=== PATIENT | male | born 1985 | race Hispanic/Latino ===

== ENCOUNTER 2019-07-27 13:35 | Observation (INO) | payer OTHER, SELFPAY ==
[2019-07-24 10:44] VITALS: BMI 38.3
[2019-07-27] VITALS (20 sets, daily range): BP systolic 81–157; BP diastolic 29–96; PULSE 51–100; RESP 8–19; TEMP 36.1–36.6; O2SAT 92–100; BMI 37.3
--- NOTE | 2019-07-27 | DI.RAD.S_ITS ---
PROCEDURE: XR LUMBAR SPINE 2-3V INDICATIONS: L5 S1 MICRODISECTOMY TECHNIQUE: 2 views of the lumbar spine were acquired. COMPARISON: None. FINDINGS: Bones: Right-sided L5-S1 portable localization for anticipated microdiscectomy. Soft tissues: Overlying bowel gas pattern is normal. No suspicious soft tissue calcifications. IMPRESSION: Expected positioning of right posterolateral access port for L5-S1 microdiscectomy. Dictated by: Danny Roberts M.D. on 07/27/2019 at 17:04 Approved by: Danny Roberts M.D. on 07/27/2019 at 17:04
[2019-07-27] MEDS: LACTATED RINGERS 1,000 ML 42 ML IV ×2 (14:21→18:37)
--- NOTE | 2019-07-27 15:43 | PM.PREOP ---
Pre-operative Note Interval Note History & Physical reviewed/Exam performed by Physician: Yes Changes to H&P: No
[2019-07-27] MEDS: CEFAZOLIN 2 GM/100 ML FROZ.PIGGY IV (16:05)
--- NOTE | 2019-07-27 16:32 | SUR.OPER ---
Prone on spine table, head in foam head support, padded chest and pelvic supports, gel pad at knees, lower legs supported by pillows; nipples, genitalia and toes free of pressure, arms secured on foam padded arm boards at <90 degrees abduction. Tape over blanket at thigh secured to table.
[2019-07-27] MEDS: methylPREDNISolone acet DEPO 40 MG/ML VIAL INJ (16:40)
[2019-07-27] MEDS: BUPIVACAINE 0.25% W/ EPI 30 ML VIAL INJ (16:41)
--- NOTE | 2019-07-27 17:15 | P.OP_ITS ---
Operative Date/Time/Diagnoses Date of procedure: 07/27/19 Time of procedure: 15:15 Pre-op diagnosis: 1. L5-S1 disc herniation 2. Lumbar radiculopathy Post-op diagnosis: same Procedure & Clinicians Procedure: 1. L5-S1 right microdiscectomy 2. Utilization of microsurgical technique and operating microscope Same procedure as scheduled: Yes Indications: Patient has been having chronic back pain and worsening lumbar radiculopathy. Patient failed multiple conservative management with worsening pain weakness and numbness in her lower extremity. Patient has been having difficulty performing activity of daily living. After discussing risks benefits of treatment options, patient elected proceed with surgery. Surgeon: Pushpa Pollard Gas Meter Repair Supervisor: Juani Zuniga Click Yes if Unassisted: No Anesthesia Type: General Operative Notes Closure Type: primary Specimen(s): none sent Estimated Blood Loss (mL): 10 Blood products transfused: none Procedure in detail: Patient was seen in the preoperative area. Risks and benefits of the surgery was discussed with the patient. Informed consent was obtained from the patient and placed in the chart. Surgical site was marked. Patient was taken to the operative room. General anesthesia was administered. Prophylactic antibiotic was given to the patient less than 30 min before the incision was made. Patient was placed into a prone position on the Paul table. Patient's back was then prepped and draped in the sterile fashion. Time- out was performed at this time. Using AP and lateral C-arm imaging the interval between L5-S1 was identified and marked on patient's back. A 1 inch incision 1 in from midline was made on the right side. The fascia was incised in line with skin incision. Globus MARS retractors was placed inside the incision and docked onto the L5 lamina. Using microsurgical technique and operating microscope, a L5-S1 laminotomy was performed using a Kerrison rongeur. Liagamentum flavum was resected at the site of the laminotomy. The disc space at L5-S1 was identified. Microdiscectomy was performed by incising the annulus with #11 blade. Microcurettes and pituitary was used to removed herniated disc fragments of disc from the epidural space. Patient was a also found to have significant amount of epidural lipomatosis which was carefully resected during the process of decompression. After the microdiskectomy was completed, the area medial lateral superior and inferior to the area of the microdiskectomy was inspected and explored using a micro curette. No other impinging structure was identified. The wound was then irrigated with sterile normal saline. 40 mg Depo-Medrol was placed into the epidural space. The deep fascia was closed with 1-0 Vicryl. The subcutaneous tissue was closed with 2-0 Vicryl. The skin was closed with skin michaelle. Patient tolerated the procedure well. There were no complications. Patient was transferred recovery room in stable condition. Complications: none Post-operative Condition: stable Disposition: PACU Plan for aftercare: Discharge to home
[2019-07-27] MEDS: HYDROMORPHONE 2 MG INJ 0.5 MG IV ×8 (17:35→18:20)
[2019-07-27] MEDS: fentaNYL 100 MCG/2 ML INJ 50 MCG IV ×4 (17:55→18:30)
[2019-07-27] MEDS: OXYCODONE/ACETAMINOPHEN 5/325 TABLET 1 TAB PO ×2 (18:15→18:42)
[2019-07-27] MEDS: hydrOXYzine 50 MG/ML INJ 25 MG IM (20:05)
--- NOTE | 2019-07-27 21:10 | PC.NURSE ---
Patients respirations are irregular with periods of 3-5 seconds of apnea.
--- NOTE | 2019-07-27 22:57 | PC.NURSE ---
2029-Patient arrives via stretcher; opens eyes spontaneously, patient DALI, reports numbness to R toes. 2299-patient remains on 2 L NC spo2-94%, lethargic-opens eyes to voice, HR in the 60s-70s, RR 10-12; shallow breathing noted, soft BP in the 90s w/MAP in the 70s. reports pain 5/10 and tolerable. denies nausea. CMS intact and now reports tingling to R toes. report to noc RN.
[2019-07-28 00:13] VITALS: BP 124/59; PULSE 105; RESP 12; TEMP 36.3; O2SAT 95
[2019-07-28] MEDS: HYDROMORPHONE 0.5 MG INJ IV (00:35)
[2019-07-28] MEDS: SODIUM CHLORIDE 0.9% FLUSH 10 ML IV (00:40)
[2019-07-28 04:27] VITALS: BP 132/65; PULSE 96; RESP 13; TEMP 36.4; O2SAT 95
[2019-07-28] MEDS: OXYCODONE/ACETAMINOPHEN 5/325 TABLET 1 TAB PO (04:27)
[2019-07-28 07:41] VITALS: BP 121/58; PULSE 87; RESP 15; O2SAT 95
[2019-07-28] MEDS: OXYCODONE/ACETAMINOPHEN 7.5/325 TABLET 1 TAB PO ×3 (08:41→15:31)
--- NOTE | 2019-07-28 09:10 | PM.PN.1 ---
Subjective Subjective Date Patient Seen: 07/28/19 Time Patient Seen: 09:10 Interval history: Patient is post op day 1 s/p L5-S1 microdisectomy with Dr. Pollard. Pain well controlled with percocet and dilaudid. Yesterday evening, patient was transferred to the ICU because of hypotension, shallow breathing, and lethargy. Patient improved overnight with 2 L NC spo2-94% and was transitioned to room air in the AM. Patient states that at home he snores, takes shallow breaths and gasps for air (observed by ). Patient complains of numbness to right lower extremity, which he had pre-op. Patient also complains of nausea and dizziness when standing up. Patient denies any fever, chills, vomiting, calf pain, chest pain, shortness of breath. Patient has support at home from his , Ara Morton. Exam Vital Signs (past 8 hours): - 07/28/19 04:27 07/28/19 07:41 Temperature 97.5 F L Pulse Rate 96 H 87 Respiratory Rate 13 15 Blood Pressure 132/65 121/58 L Pulse Oximetry 95 95 Oxygen Delivery Method Nasal Cannula Oxygen Flow Rate 0.5 Narrative Exam Narrative: 34 y/o M is sitting comfortably in a chair, in no apparent distress. A&Ox3. Sensation to light touch reduced on lateral, posterior right calf. Pulses 2+ bilaterally lower extremities. Patient able to actively plantar flex/dorsiflex bilaterally. Objective Labs Result Diagrams: 07/28/19 09:48 Assessment & Plan Assessment & Plan narrative: Post op day 1 Hypotension: EKG/Telemetry shows normal sinus rythym and patient has stabilized Patient told to follow up with PCP Patient will mobilize with physical therapy. Pain well controlled with dilaudid and percocet. Patient will likely be discharged home today if medically stable Quality VTE Deep Vein Thrombosis/Pulmonary Embolism Present on Admission: No
--- NOTE | 2019-07-28 09:15 | PT.IIE ---
Current Diagnoses Intervertebral disc disorders with radiculopathy, lumbar region (07/27/19) Dorsalgia, unspecified (07/27/19) Surgery Performed Operation Date: 07/27/19 15:15 Actual Procedures p L5-S1 microdiscectomy(Right) - Pushpa Pollard MD Surgical History (Last Updated 07/24/19 @ 11:02 by Martina Vasquez, RN) No history of previous surgery (Acute) Medical History (Last Updated 07/24/19 @ 11:02 by Martina Vasquez RN) Back pain (Acute) Physical Therapy Inpatient Evaluation/Re-Eval M1 PT/OT-IP Prior Functional Status Start: 07/28/19 12:17 Freq: NEEDED Status: Active Protocol: Document 07/28/19 09:15 AB (Rec: 07/28/19 12:27 [id number]) Medical Review Prior Functional Status Medical History Reviewed Yes Communication able to make needs known Mobility and Gait pt stated that he is independent with all mobilities and ambulation without AD Social History Household Members spouse,children Living Arrangements House Number of Floors (Floors) Two Floors Number of Stairs To Enter/Railing? 2 steps to enter R rail + 1 step threshold to enter the house bedroom level: 15 steps with L rail ascending Home Environment Standard Height Toilet,Walk in Shower Employment Status Active Duty Additional Social History Comment pt works in the [employer] M2 PT-IP Current Condition Start: 07/28/19 12:17 Freq: NEEDED Status: Active Protocol: Document 07/28/19 09:15 AB (Rec: 07/28/19 12:27 [id number]) Physical Therapy Current Condition Current Condition Evaluation Date 07/28/19 Treatment Diagnosis L5S1 R mircordiscectomy; difficulty in walking Onset Date 07/27/19 Precautions Lumbar Precautions Log Roll,No Twisting,Limit Bending,Lifting Restriction of 10 lbs,Gait Belt above Incisional Area M3 PT-IP Subjective Start: 07/28/19 12:17 Freq: NEEDED Status: Active Protocol: Document 07/28/19 09:15 AB (Rec: 07/28/19 12:27 [id number]) Subjective Physical Therapy Visit Type Type Initial Evaluation Visit Start Time 09:15 Visit Stop Time 10:10 Total Visit Minutes 55 Number of BUNG DRIVER Visits 0 Physical Therapy Visit Comments Patient Comments pt agreeable to do PT Therapy Pain Assessment Pain When Pain Assessed At Rest Pain Present Pain Present Pain Reported Location lower back/right thigh Intensity 3 Scale Used increases to 4-5 with movement Pain Behaviors Guarding Pain Management Techniques Re-positioning,Timing of Activity with Medications M4 PT-IP Mobility and Gait Start: 07/28/19 12:17 Freq: NEEDED Status: Active Protocol: Document 07/28/19 09:15 AB (Rec: 07/28/19 12:27 [id number]) PT-Bed Mobility Assessment Rolling Type of Rolling Log Rolling Level of Assist Standby Assistance Supine to Sit Supine to Sit Standby Assistance Sit to Supine Sit to Supine Standby Assistance Scooting Scooting to Edge of Bed Standby Assistance PT-Transfer Assessment Sit to and From Stand Sit to and from Stand Contact Guard Assistance,1 Person Assistance,Use of Upper Extremities Equipment Transfer Assistive Device Gait Belt,Front Wheeled Walker Orthotic/Prosthetic Devices or Brace: No Comments Mobility Comments completed sit <>stand x 5 reps requiring initial min A. educated on techniques and was able to complete with just CGA Gait Assessment Gait Gait Assistance Required: Contact Guard Assist Distance (Feet) 50 Able to Maintain Weight Bearing Status Yes During Gait Assistive Devices Assistive Device Gait Belt,Front Wheeled Walker Orthotic/Prosthetic Devices or Brace: No Gait Deviations General Gait Pattern Antalgic,Decreased Stride Length,Decreased Feet Clearance,Step-to Gait Factors Limiting Gait Function Factors Limiting Gait Function Decreased Activity Tolerance, Decreased Sensation,Decreased Strength,Limited Range of Motion,Pain,Poor Balance,Poor Safety Awareness Comments Gait Comments pt presents with unsteady gait and very guarded, requiring increase time to complete tasks. PT-Balance Assessment Sitting Balance and Reactions Static Sitting Balance Ability Good Dynamic Sitting Balance Ability Good Standing Balance and Reactions Static Standing Balance Ability Fair Dynamic Standing Balance Ability Fair Device Used FWW M5 PT-IP Objective Assessments Start: 07/28/19 12:17 Freq: NEEDED Status: Active Protocol: Document 07/28/19 09:15 AB (Rec: 07/28/19 12:27 [id number]) Orientation Orientation/Cognition Level of Alertness Alert Orientation Name,Age,Birthday,Month,Date, Year,Day of Week,Place, Situation Language Function Ability No Deficits Noted Safety Awareness Understands Safety Issues Memory Description No Deficits Noted Gross Range of Motion Lower Extremity ROM Assessment Within Functional Limits Strength Lower Extremity Strength Assessment Bilaterally Impaired Hip 4-/5 Knee 4-/5 Coordination Assessment Gross Coordination Gross Coordination WNL Sensation Assessment Sensation Gross Sensation Right LE Impaired Light Touch Impaired Proprioception (Position) Impaired Sensation Description Numbness,Tingling Comments Sensation Comments able to determine light touch location but c/o numbness/ tingling more on lateral R lower leg and R foot. Muscle Tone Muscle Tone WNL Yes M6 PT-IP Treatment Start: 07/28/19 12:17 Freq: NEEDED Status: Active Protocol: Document 07/28/19 09:15 AB (Rec: 07/28/19 12:27 [id number]) Physical Therapy Treatment Education Education Provided Precautions,Weight Bearing Status,Post-Op Packet,Safety M7 PT-IP Assessment and Plan Start: 07/28/19 12:17 Freq: NEEDED Status: Active Protocol: Document 07/28/19 09:15 AB (Rec: 07/28/19 12:27 [id number]) PT Summary Assessment and Plan Potential Rehabilitation Potential Good Status of Condition at Evaluation Evolving Summary Impairments Pain,ROM,Strength,Balance, Coordination,Sensation,Tone, Cognition,Bed Mobility, Transfers,Gait,Activity Tolerance Assessment Summary pt requiring CGA with mobility and requiring increase time to complete tasks. set up caregiver training later today ~1pm with spouse. will also conduct stair climbing training. d/c plan depending if spouse will be able to assist pt safely. will continue to assess. also informed pt regarding equipement needs: FWW, shower chair and RTS with handles. Goals Bed Mobility Goal Independent Transfer Goal Independent,Front Wheeled Walker Gait Goal Independent,Front Wheel Walker Gait Distance 200 Other Goals up/down 2 steps R rail SBA up/down 1 step using FWW SBA up/down 15 steps L rail SBA Frequency of Treatment Frequency Of Treatment Twice a Day Treatment Plan Physical Therapy Treatment Plan Bed Mobility Training,Transfer Training,Gait Training, Therapeutic Exercise,Balance Retraining,Post Op Education, Discharge Planning,Hot or Cold Pack,Neuromuscular Re-ed, Coordination Retraining,Manual Therapy Other Recommendations and Next Treatment caregiver training 07/28/19@ 1 Focus pm Recommendations To Nursing Amount of Assist Needed 1 Person Assist Discharge Recommendations PT Discharge Recommendations Home with Assistance Equipment Needed for Home Before FWW, RTS with handles, shower Discharge chair
[2019-07-28 09:54] LABS: Hematocrit 42.3 % (41-53); Hemoglobin 14.6 g/dL (13.5-17.5)
--- NOTE | 2019-07-28 11:46 | CM.DANOTE ---
Addendum entered by Darlene Melendrez 07/28/19 17:20: Faxed initial clinicals to [facility] per protocol. Addendum entered by Darlene Melendrez 07/28/19 13:27: Spoke with Luzma from PT, she reports that spouse will need some caregiver training prior to d/c. Spouse expected to meet therapy this afternoon for training. D/C either today or in AM. KJS Original Note: DCP/Assessment: Reviewed chart. benjamin is a 34yr old male admitted to [facility] for elective L5-S1 microdisectomy with Dr. Pollard. PCP is at [facility]. Primary payor is 1)[employer]. Met with patient explained CM/SW role. Patient alert and oriented at time of visit. Patient reports that he resides with his spouse/Ara. Patient plans to d/c home when medically stable. Per Carlos from [facility] team that might be today. Therapy evaluation pending. At this time do not anticipate any d/c planning needs. P: Home when stable. ZACHERY Montano Discharge Planning/Care Management Advanced directive, confirm from FAMILY Start: 07/27/19 22:27 Freq: Q24H Status: Active Protocol: Document 07/27/19 22:27 HF (Rec: 07/27/19 22:27 HF [id number]) Advance Directive, confirm on record Time 22:00 Person contacted patient Copy received No CM Discharge Assessment Start: 07/28/19 11:37 Freq: Status: Active Protocol: Document 07/28/19 11:37 KJS (Rec: 07/28/19 11:45 KJS [id number]) Discharge Planning Assessment Assigned Learning Officer ZACHERY Montano Advance Directives? Yes History Provided By Patient,Medical Record Has Patient been admitted in last 30 No days? Prior Living Arrangements House Household Members spouse Type of transporation used prior to Drives own vehicle admit Independent with ADL's Yes Is patient alert and oriented? Yes Caregiver for Another No Barriers to Discharge No Discharge Plan Home Transportation Arrangement Family to provide transportation when medically stable. Referrals Initiated None needed Whiteboard Updated in Patient Room with Yes name and ext. # of Learning Officer Review Status In Process Next Review Type Continued Stay Review
--- NOTE | 2019-07-28 12:35 | PM.DS.1 ---
History of Present Illness History of Present Illness Date Patient Seen: 07/28/19 Time Patient Seen: 08:00 Chief complaint: [id number] Narrative: Patient has been having chronic back pain and worsening lumbar radiculopathy. Patient failed multiple conservative management with worsening pain weakness and numbness in her lower extremity. Patient has been having difficulty performing activity of daily living. After discussing risks benefits of treatment options, patient elected proceed with surgery. Discharge Providers Provider Date of admission: 07/27/19 13:35 Discharge Date: 07/28/19 Consults: 07/27/19 19:43 Consult to Physical Therapy Evaluate & Treat Comment: Physician Instructions: Evaluate and Treat 07/28/19 12:32 Consult to Physical Therapy Evaluate & Treat Comment: FWW for home use, raised toilet seat for home. Physician Instructions: Evaluate and Treat Discharge provider: Susana Tatum PA-C Summary Hospital Course Discharge Diagnosis: s/p L5-S1 right microdiscectomy back pain Hospital Course: Pt admitted for a L5-S1 right microdiscectomy with Dr. Pollard. Hospital course was notable for an ICU transfer on POD 0 for hypotension, shallow breathing, and lethargy. Patient was put on 2 L NC spo2-94% and had telemetry (normal sinus rythm). Patient improved overnight, vital signs were stable on POD 1 and was ready for discharge home. Patient advised to follow up with PCP. He was prescribed oxycodone, tylenol, and ibuprofen for home. Patient eating and voiding without difficulty or assistance prior to discharge. Pt was mobilizing with physical therapy prior to discharge. Patient has outpatient PT scheduled. Dressing was CDI. ASA 81 mg bid for DVT prophylaxis. Status at Discharge Cognitive/behavioral status at discharge: oriented Functional status at discharge: uses cane/walker Time Spent with Patient Time spent: Less than 30 minutes Exam Vital Signs (past 8 hours): - 07/28/19 07:41 Pulse Rate 87 Respiratory Rate 15 Blood Pressure 121/58 L Pulse Oximetry 95 Oxygen Delivery Method Nasal Cannula Oxygen Flow Rate 0.5 Narrative Exam Narrative: 34 y/o M is sitting comfortably in a chair, in no apparent distress. A&Ox3. Sensation to light touch reduced on lateral, posterior right calf. Pulses 2+ bilaterally lower extremities. Patient able to actively plantar flex/dorsiflex bilaterally. Objective Labs Result Diagrams: 07/28/19 09:48 Labs: Laboratory Results - last 24 hr 07/28/19 09:48 Hgb 14.6 Hct 42.3 Discharge Plan Discharge Plan Patient Disposition: Home Discharge Med Rec/Prescriptions Prescriptions: New acetaminophen [Tylenol Extra Strength] 500 mg tablet 500 mg PO Q4H PRN (Reason: post-op) Qty: 60 RF: 0 aspirin 81 mg tablet,delayed release (DR/EC) 81 mg PO BID Qty: 60 RF: 0 oxycodone 5 mg capsule 5 mg PO Q4-6H PRN (Reason: pain) Qty: 40 RF: 0 ibuprofen 400 mg tablet 400 mg PO Q4HR Qty: 60 RF: 0 ondansetron HCl [Zofran] 4 mg tablet 4 mg PO Q6-8H PRN (Reason: nausea and vomiting) Qty: 20 RF: 0 Discontinued ibuprofen 600 mg Tablet 600 mg PO TID RF: 0 Follow up/Referrals: Pushpa Pollard MD [Physician] - Provider Discharge Instructions Diet: Diet as Tolerated and Regular Activity: Ambulate as tolerated. No excessive lifting, bending and twisting Other treatments: Follow up with PCP as per hypotension during post-op Skin/Wound/Dressing Care Report to your healthcare provider any signs of infection, such as:: chills, fever, night sweats, increased pain, unusual drainage and unusual redness Dressing: Keep incision clean and dry May shower starting tomorrow with incision covered May remove dressing in 1 week but continue to shower with incision covered for total of two weeks Visit Report/Discharge Packet Instructions: DI for Microdiscectomy Discharge Data Attending Provider: Pushpa Pollard Admit Date/Time: 07/27/19 13:35 Quality VTE Deep Vein Thrombosis/Pulmonary Embolism Present on Admission: No
--- NOTE | 2019-07-28 13:18 | PT.IPTN ---
Current Diagnoses Intervertebral disc disorders with radiculopathy, lumbar region (07/27/19) Dorsalgia, unspecified (07/27/19) Surgery Performed Operation Date: 07/27/19 15:15 Actual Procedures p L5-S1 microdiscectomy(Right) - Pushpa Pollard MD Physical Therapy Treatment Note M2 PT-IP Current Condition Start: 07/28/19 12:17 Freq: NEEDED Status: Active Protocol: Document 07/28/19 09:15 AB (Rec: 07/28/19 12:27 AB [id number]) Physical Therapy Current Condition Current Condition Evaluation Date 07/28/19 Treatment Diagnosis L5S1 R mircordiscectomy; difficulty in walking Onset Date 07/27/19 Precautions Lumbar Precautions Log Roll,No Twisting,Limit Bending,Lifting Restriction of 10 lbs,Gait Belt above Incisional Area M3 PT-IP Subjective Start: 07/28/19 12:17 Freq: NEEDED Status: Active Protocol: Document 07/28/19 13:18 AB (Rec: 07/28/19 14:36 AB [id number]) Subjective Physical Therapy Visit Type Type Treatment Note Visit Start Time 13:18 Visit Stop Time 14:13 Total Visit Minutes 55 Number of HOTEL DESK CLERK Visits 0 Physical Therapy Visit Comments Patient Comments pt agreeable to do PT; spouse present for caregiver training Therapy Pain Assessment Pain When Pain Assessed At Rest Pain Present Pain Present Pain Reported Location lower back/right thigh Intensity 2 Scale Used increases to 6/10 with mobility Pain Behaviors Facial Grimacing Pain Management Techniques Re-positioning,Timing of Activity with Medications M4 PT-IP Mobility and Gait Start: 07/28/19 12:17 Freq: NEEDED Status: Active Protocol: Document 07/28/19 13:18 AB (Rec: 07/28/19 14:36 AB [id number]) PT-Bed Mobility Assessment Supine to Sit Supine to Sit Standby Assistance Sit to Supine Sit to Supine Standby Assistance Scooting Scooting to Edge of Bed Standby Assistance Scooting Up and Down in Bed Standby Assistance PT-Transfer Assessment Sit to and From Stand Sit to and from Stand Standby Assistance,Contact Guard Assistance,1 Person Assistance,Use of Upper Extremities Equipment Transfer Assistive Device Gait Belt,Front Wheeled Walker Orthotic/Prosthetic Devices or Brace: No Comments Mobility Comments caregiver training conducted with pt and spouse. educated spouse on how to use safety belt and how to assist pt. pt completed supine<>sit log roll bed mobility SBA. spouse assisted pt with sit <>stand x 3 reps CGA and was able to assist pt safely. pt ambulated with spouse assisting ~ 100 ft CGA. (+) L knee slight buckling with recovery min A but no incidence after that. Gait Assessment Gait Gait Assistance Required: Standby Assistance,Contact Guard Assist Distance (Feet) 100 Able to Maintain Weight Bearing Status Yes During Gait Assistive Devices Assistive Device Gait Belt,Front Wheeled Walker Orthotic/Prosthetic Devices or Brace: No Gait Deviations General Gait Pattern Ataxic,Decreased Stride Length ,Decreased Feet Clearance Factors Limiting Gait Function Factors Limiting Gait Function Decreased Activity Tolerance, Decreased Sensation,Decreased Strength,Limited Range of Motion,Pain,Poor Balance Comments Gait Comments please refer to mobility section for details Stair Climbing Assessment Evaluation Level of Assist On Stairs Contact Guard Assistance, Minimal Assistance Devices Stair Climbing Assistive Devices Front Wheel Walker,Left Railing,Right Railing Technique/Endurance Stair Climbing Direction Ascend and Descend Stair Climbing Technique Step to Step Number of Steps Climbed 3 Stair Climbing Set # Repetitions (reps) 3 Comments Stair Climbing Comments pt completed up/down steps using bilateral rails CGA. completed up/down steps using R rail SBA; also completed up/ down steps using L rail min A and cues; completed up/down platform step using FWW min A and cues. Spouse assisted pt with steps and completed safely. pt with decrease activity tolerance and has more difficulty doing steps with L rail ascending and has those steps to get into bedroom level. pt has a couch with terri in first main level of the house and plans to just sleep in there for now. M5 PT-IP Objective Assessments Start: 07/28/19 12:17 Freq: NEEDED Status: Active Protocol: Document 07/28/19 09:15 AB (Rec: 07/28/19 12:27 AB [id number]) Orientation Orientation/Cognition Level of Alertness Alert Orientation Name,Age,Birthday,Month,Date, Year,Day of Week,Place, Situation Language Function Ability No Deficits Noted Safety Awareness Understands Safety Issues Memory Description No Deficits Noted Gross Range of Motion Lower Extremity ROM Assessment Within Functional Limits Strength Lower Extremity Strength Assessment Bilaterally Impaired Hip 4-/5 Knee 4-/5 Coordination Assessment Gross Coordination Gross Coordination WNL Sensation Assessment Sensation Gross Sensation Right LE Impaired Light Touch Impaired Proprioception (Position) Impaired Sensation Description Numbness,Tingling Comments Sensation Comments able to determine light touch location but c/o numbness/ tingling more on lateral R lower leg and R foot. Muscle Tone Muscle Tone WNL Yes M6 PT-IP Treatment Start: 07/28/19 12:17 Freq: NEEDED Status: Active Protocol: Document 07/28/19 13:18 AB (Rec: 07/28/19 14:36 AB [id number]) Physical Therapy Treatment Education Education Provided Precautions,Weight Bearing Status,Post-Op Packet,Safety M7 PT-IP Assessment and Plan Start: 07/28/19 12:17 Freq: NEEDED Status: Active Protocol: Document 07/28/19 13:18 AB (Rec: 07/28/19 14:36 AB [id number]) PT Summary Assessment and Plan Potential Rehabilitation Potential Good Summary Impairments Pain,ROM,Strength,Balance, Coordination,Sensation,Bed Mobility,Transfers,Gait, Activity Tolerance Progress Towards Goals Slow Progress due to Pain,Slow Progress due to Medical Issues Assessment Summary caregiver training conducted and spouse was able to assist pt at home. dispensed FWW for pt to use for home. pt and spouse with no other concerns and plans to go home later today. Goals Bed Mobility Goal Independent Transfer Goal Independent,Front Wheeled Walker Gait Goal Independent,Front Wheel Walker Gait Distance 200 Other Goals up/down 2 steps R rail SBA up/down 1 step using FWW SBA up/down 15 steps L rail SBA Frequency of Treatment Frequency Of Treatment Twice a Day Treatment Plan Physical Therapy Treatment Plan Bed Mobility Training,Transfer Training,Gait Training, Therapeutic Exercise,Balance Retraining,Post Op Education, Discharge Planning,Hot or Cold Pack,Neuromuscular Re-ed, Coordination Retraining,Manual Therapy Other Recommendations and Next Treatment caregiver training 07/28/19@ 1 Focus pm Recommendations To Nursing Amount of Assist Needed 1 Person Assist Discharge Recommendations PT Discharge Recommendations Home with Assistance Equipment Needed for Home Before FWW, RTS with handles, shower Discharge chair
--- NOTE | 2019-07-28 14:27 | PC.NURSE ---
Am shift Pt tolerating pain meds with oxycodone 7.5 mg/325 pain staying 3-5 with movement. Up with PT for final eval and ok to d/c home from [place]. in for PT training. Pt has tolerated RA well today, no concerns with resp effort and pain control.
== END 2019-07-28 16:10 | disposition home or self-care (01) ==
LOC: OR 17:21 → ICU 07-28 10:49
PROVIDERS: Physician Assistant; Admitting Provider Orthopaedic Surgery Orthopaedic Surgery of the Spine; Visit Provider Orthopaedic Surgery Orthopaedic Surgery of the Spine
PROC: (CPT 63030; principal; 2019-07-27 15:15)
DX: M51.16 Intervertebral disc disorders with radiculopathy, lumbar region (principal); M54.9 Dorsalgia, unspecified
CPT/HCPCS: 63030; 36415; 72100; 76000; 85014; 85018; 97116; 97162; 97530; G0378; J0690; J1030; J1100; J1170; J2405; J2704; J3010; J3410

== ENCOUNTER 2020-09-10 20:30 | Emergency (ER) | payer OTHER, SELFPAY ==
[2019-10-17 17:08] VITALS: BMI 37.3
[2020-09-10 20:47] VITALS: BP 147/84; PULSE 86; RESP 16; TEMP 36.8; O2SAT 95; BMI 42.3
--- NOTE | 2020-09-11 01:26 | PC.NURSE ---
History of discectomy about a year ago symptoms started a few days ago. Shooting pain down both legs when standing/walking, right worse than left. Right side also has residual numbness and tingling since previous surgery.
--- NOTE | 2020-09-11 01:58 | ED_ITS ---
HPI - Back Pain/Injury General Chief Complaint: Back Pain/Injury Stated Complaint: low back pain, stiffness Time Seen by Provider: 09/11/20 01:58 Source: patient Mode of arrival: Ambulatory Limitations: no limitations History of Present Illness HPI Narrative: The patient underwent right L4-5 microdiskectomy in 2019. He did this after an injury lifting weights. He is in the [employer], he was working out when he injured himself. He has chronic low back pain. Pain shoots down the right leg. He takes OTC ibuprofen, and Tylenol. He takes cyclobenzaprine as needed. He had injections to the lumbar spine last month. He has no bowel or bladder incontinence. He has no weakness to his lower extremities. In the past a his pain has increased significantly. There has been no injury, woke up with a increased pain. He is ambulatory. He denies recent illness. Related Data Home Medications Medication Instructions Recorded Confirmed cyclobenzaprine 5 mg tablet 5 mg PO BEDTIME 01/17/20 01/17/20 Previous Rx's Medication Instructions Recorded acetaminophen [Tylenol Extra 500 mg PO Q4H PRN #60 tab 07/28/19 Strength] aspirin 81 mg PO BID #60 tab 07/28/19 ibuprofen 400 mg PO Q4HR #60 tab 07/28/19 oxycodone 5 mg PO Q4-6H PRN #40 cap 07/28/19 hydrocodone-acetaminophen [[place]] 1 tab PO Q4-6H PRN #10 tab 09/11/20 Allergies Allergy/AdvReac Type Severity Reaction Status Date / Time No Known Drug Allergies Allergy Verified 07/27/19 14:01 Review of Systems Constitutional Constitutional: Denies chills and Denies fever(s) Cardiovascular Cardiovascular: Denies chest pain and Denies dyspnea Respiratory Respiratory: Denies cough and Denies dyspnea Gastrointestinal Comments: No GI incontinence Genitourinary Comments: No urinary incontinence Musculoskeletal Musculoskeletal: Reports as per HPI Neurologic Comments: No lower extremity numbness or weakness. Patient History Medical History Chronic low back pain (Acute) Excessive daytime sleepiness (Chronic) Obesity (BMI 30-39.9) (Chronic) Obstructive sleep apnea (Chronic) Surgical History S/P lumbar microdiscectomy (Acute) Social History household members: spouse Smoking Status: Former smoker alcohol intake: current Smoking Status: Former smoker alcohol intake frequency: holidays/special occasions only Substance Use Type: does not use Exam Initial Vital Signs Initial Vital Signs: Vital Signs Temperature 98.2 F 09/10/20 20:47 Pulse Rate 86 09/10/20 20:47 Respiratory Rate 16 09/10/20 20:47 Blood Pressure 147/84 H 09/10/20 20:47 Pulse Oximetry 95 09/10/20 20:47 Const General: cooperative and well developed Nutritional Appearance: well nourished Back/Spine/Pelvis Other: Number tenderness. Incision site from prior surgery. No palpable deformity. No inflammatory changes. Skin General: no rashes or lesions noted, No jaundice and No petechiae Neuro General: patient alert, patient oriented x3 and gait normal Other: Motor and sensory exam of the lower extremities is intact. Extrem General: normal to inspection and full ROM Course Course Course Narrative: The patient received Toradol 60 mg IM. Be discharged with hydrocodone to at history regimen every 4 hours as necessary. He will be given a small supply. He will need to follow-up with his primary care doctor to arrange ongoing care. Orders Ordered: Discontinued Medications Ketorolac Tromethamine (Toradol) 60 mg IM NOW ONE Stop: 09/11/20 02:05 Last Admin: 09/11/20 02:18 Dose: 60 mg Documented by: MAHENDRA Vital Signs Vital signs: Vital Signs - 8 hr 09/10/20 20:47 Temperature 98.2 F Pulse Rate 86 Respiratory Rate 16 Blood Pressure 147/84 H Pulse Oximetry 95 Discharge Plan Departure Patient Disposition: Home Clinical Impression: Back pain with history of spinal surgery Clinical Impression: (Ruled Out): Excessive daytime sleepiness Instructions: DI for Back Pain With Sciatica, DI for Back Strain or Sprain Activity Restrictions/Additional Instructions: Continue taking ibuprofen every 4-6 hours as needed for pain. Use cyclobenzaprine as necessary for spasm. [place] every 4 hours as necessary for added pain control. You will be given a small supply. Follow-up with your primary care doctor to discuss ongoing care. Prescriptions: New hydrocodone-acetaminophen [[place]] 5-325 mg tablet 1 tab PO Q4-6H PRN (Reason: pain) Qty: 10 RF: 0 No Action acetaminophen [Tylenol Extra Strength] 500 mg tablet 500 mg PO Q4H PRN (Reason: post-op) Qty: 60 RF: 0 aspirin 81 mg tablet,delayed release (DR/EC) 81 mg PO BID Qty: 60 RF: 0 oxycodone 5 mg capsule 5 mg PO Q4-6H PRN (Reason: pain) Qty: 40 RF: 0 ibuprofen 400 mg tablet 400 mg PO Q4HR Qty: 60 RF: 0 cyclobenzaprine 5 mg tablet 5 mg PO BEDTIME RF: 0 Referrals: Richardson Leone PA-C [Primary Care Provider] -
[2020-09-11] MEDS: KETOROLAC 60 MG/2 ML VIAL IM (02:18)
[2020-09-11] MEDS: HYDROCODONE/ACET 5/325 PREPACK 1 BOTTLE MISC (03:13)
== END 2020-09-11 03:24 | disposition home or self-care (01) ==
PROVIDERS: Emergency Provider Emergency Medicine; PCP Specialist/Technologist Athletic Trainer
DX: M54.5 Low back pain (principal); Z87.39 Personal history of other diseases of the musculoskeletal system and connective tissue
CPT/HCPCS: 96372; 99283; J1885

== ENCOUNTER → 2020-10-28 08:37 | Outpatient (CLI) | payer OTHER, SELFPAY ==
[2019-10-17 17:08] VITALS: BMI 37.3
[2020-10-28 10:58] LABS: COVID19 -Nasal RAPID Negative (Negative)
== END ==
PROVIDERS: PCP Specialist/Technologist Athletic Trainer; Visit Provider Family Medicine Sleep Medicine
DX: Z20.828 Contact with and (suspected) exposure to other viral communicable diseases (principal)
CPT/HCPCS: 87635; C9803

== ENCOUNTER → 2020-11-06 09:55 | Outpatient (CLI) | payer OTHER, SELFPAY ==
[2019-10-17 17:08] VITALS: BMI 37.3
[2020-11-06 11:52] LABS: COVID19 -Nasal RAPID Negative (Negative)
== END ==
PROVIDERS: PCP Specialist/Technologist Athletic Trainer; Visit Provider Nurse Practitioner Family
DX: Z01.812 Encounter for preprocedural laboratory examination (principal); Z20.828 Contact with and (suspected) exposure to other viral communicable diseases
CPT/HCPCS: 87635; C9803

== ENCOUNTER → 2021-01-28 08:26 | Outpatient (CLI) | payer OTHER, SELFPAY ==
[2019-10-17 17:08] VITALS: BMI 37.3
--- NOTE | 2021-01-28 | DI.MRI.S_ITS ---
PROCEDURE: MR LUMBAR SPINE WO CON INDICATIONS: Intervertebral disc disorders with radiculopathy, TECHNIQUE: Noncontrast sagittal T1 spin echo and T2 fast echo, sagittal STIR, axial T1 and T2 fast spin echo through the lumbar spine. In cases with scoliosis, additional coronal T2 fast spin echo may be performed. COMPARISON: [facility], CR, XR LUMBAR SPINE WITH OLBIQUES PLUS FLEXION EXTENSION, 01/12/2021, 15:42. [facility] Outside [facility], MR, MR LUMBAR SPINE WITHOUT CONTRAST, 06/11/2019, 8:57. [facility] Outside Film, MR, MR LUMBAR SPINE WITH/WITHOUT CONTRAST, 03/13/2020, 14:26. FINDINGS: Image quality: Excellent. Alignment and Curvature: There is normal bony alignment. Bones: Postsurgical changes compatible with right L5-S1 laminotomy. Marrow is of normal overall signal. No acute vertebral body compression fractures. Spinal Cord: Conus medullaris terminates at the L1 level. Visualized cord demonstrates normal signal and size. Paraspinous Soft Tissues: No paravertebral masses. T12-L1: Normal appearance. L1-L2: Normal appearance. L2-L3: Normal appearance. L3-L4: Normal appearance. L4-L5: Normal appearance. L5-S1: Loss of disc signal. Mild, diffuse disc bulge. Small central disc protrusion. No central stenosis. Mild bilateral neural foraminal narrowing. No neural compression. Fissure noted in the posterior annulus. IMPRESSION: 1. Mild L5-S1 degenerative disc disease. 2. No central stenosis. 3. Mild bilateral L4-L5 neural foraminal narrowing. 4. No neural compression. 5. L5-S1 disc annulus fissure. Dictated by: Sun Finley MD, PhD on 01/28/2021 at 10:43 Approved by: Sun Finley MD, PhD on 01/28/2021 at 10:47
== END ==
PROVIDERS: PCP Family Medicine; Referring Provider Physical Medicine & Rehabilitation Pain Medicine; Visit Provider Physical Medicine & Rehabilitation Pain Medicine
DX: M51.16 Intervertebral disc disorders with radiculopathy, lumbar region (principal); M51.17 Intervertebral disc disorders with radiculopathy, lumbosacral region; M48.061 Spinal stenosis, lumbar region without neurogenic claudication
CPT/HCPCS: 72148